=== PATIENT | female | born 1950 | race Caucasian/White ===

== ENCOUNTER 2024-03-20 10:13 | Outpatient (CLI) | payer MEDICARE | END 2024-03-20 10:14 | disposition home or self-care (01) | LOC: BICRAD 10:13 | PROVIDERS: ATTEND Physician Assistant Medical | DX: K21.9 Gastro-esophageal reflux disease without esophagitis (principal); R06.89 Other abnormalities of breathing; K44.9 Diaphragmatic hernia without obstruction or gangrene; J44.9 Chronic obstructive pulmonary disease, unspecified | CPT/HCPCS: 71046 ==